=== PATIENT | female | born 1930 | race African-American/Black ===

== ENCOUNTER 2017-02-11 16:47 | Inpatient (IN) | payer MEDICARE, MEDICAID ==
[~2017-02-11] VITALS: Ht 154.9 cm; Wt 49.9 kg
[~2017-02-11 16:47] MED LIST: AMLO1CAP6 PO; BACTROBAN 2% TOP; CLON0.2T PO; FERR-43 PO; HYDR-4134 PO; LEVO25TA7 PO; LORA10TA7 PO; MELO-106 PO; METO100T5 PO; SANTYL U TOP; TRAM50TA3 PO; VITA1TAB22 PO; [UNRECOGNIZED DRUG - OTHER] TOP
[2017-02-11] MEDS ORDERED: TRAMADOL 50MG TABLET PO PRN ×2 (19:15→21:02)
[2017-02-11] MEDS ORDERED: IPRATROPIUM/ALBUTEROL 0.5-3(2.5)MG/3ML NEB INH PRN (19:15)
[2017-02-11] MEDS ORDERED: ONDANSETRON HCL 4MG/2ML VIAL IV PRN (19:15)
[2017-02-11] MEDS ORDERED: BISACODYL 5MG TABLET PO PRN (19:15)
[2017-02-11] MEDS ORDERED: ACETAMINOPHEN 325MG TABLET PO PRN (19:15)
[2017-02-11] MEDS ORDERED: LORAZEPAM 2MG/ML CPJ IV PRN (19:15)
[2017-02-11 20:00] VITALS: BP 142/57
[2017-02-11] MEDS ORDERED: NITROGLYCERIN 0.4MG TABLET SL SL PRN (20:15)
[2017-02-11] MEDS ORDERED: ZOLPIDEM TARTRATE 5MG TABLET PO PRN (20:15)
[2017-02-11 20:30] VITALS: BP 142/57
[2017-02-11 20:34] LABS: BASOPHILS % 0.8 % (0.0-2.0); EOSINOPHILS % 13.2 % (0.0-5.0); LYMPHOCYTES % 37.1 % (20.0-50.0); MEAN CORPUSCULAR VOLUME 102.4 fL (81.0-99.0); MEAN PLATELET VOLUME 6.7 fl (7.4-10.4); NEUTROPHILS % 34.9 % (40.0-76.0); PLATELET 358 x1000/uL (130-400); RED BLOOD CELL COUNT 1.93 mill/uL (4.2-5.4); RED CELL DISTRIBUTION WIDTH 13.4 % (11.6-14.6)
[2017-02-11 20:46] LABS: HEMATOCRIT. 19.7 % (36.0-48.0); HEMOGLOBIN. 6.5 g/dL (12.0-16.0)
[2017-02-11] MEDS ORDERED: DOCUSATE SODIUM 250MG CAPSULE PO NR (21:02)
[2017-02-11] MEDS ORDERED: DIATR MEGLU/DIATRIZOATE SOLN 30ML PO SCH (21:02)
[2017-02-11] MEDS ORDERED: DIPHENHYDRAMINE 50MG/ML VIAL IM PRN (21:15)
[2017-02-11 22:11] LABS: T4 FREE 0.93 ng/dL (0.76-1.46)
[2017-02-11 22:32] LABS: FOLIC ACID (FOLATE) SERUM 3.5 ng/mL (>5.38)
[2017-02-11] MEDS ORDERED: FOLIC ACID 1 MG in SODIUM CHLORIDE 0.9% 500 ML IV ONE (23:00)
[2017-02-11] MEDS ORDERED: LEVOFLOXACIN 500MG PREMIX 100 ML IV SCH (23:00)
[2017-02-11] MEDS: HYDRALAZINE HCL 25MG TABLET PO SCH (23:10)
[2017-02-11] MEDS: FOLIC ACID 1MG TABLET PO SCH (23:54)
[2017-02-12] VITALS (15 sets, daily range): BP systolic 127–175; BP diastolic 54–90
[2017-02-12] MEDS ORDERED: LEVOFLOXACIN 500MG PREMIX 100 ML IV SCH
[2017-02-12 04:14] LABS: CLARITY URINE CLEAR (CLEAR); COLOR URINE YELLOW (YELLOW); GLUCOSE URINE NEGATIVE (NEGATIVE); KETONES URINE NEGATIVE (NEGATIVE); LEUKOCYTE ESTERASE URINE 1+ (NEGATIVE); NITRITE URINE NEGATIVE (NEGATIVE); OCCULT BLOOD URINE NEGATIVE (NEGATIVE); PH URINE 6.5 (4.5-8.0); PROTEIN URINE TRACE (NEGATIVE); SPECIFIC GRAVITY URINE 1.018 (1.005-1.030); UROBILINOGEN URINE 0.2 E.U./dL (0.2-1.0)
[2017-02-12] MEDS: LEVOTHYROXINE SODIUM 25MCG TABLET PO SCH (06:20)
[2017-02-12] MEDS: HYDRALAZINE HCL 25MG TABLET PO SCH ×3 (06:21→17:42)
[2017-02-12 06:34] LABS: BASOPHILS % 0.8 % (0.0-2.0); EOSINOPHILS % 11.2 % (0.0-5.0); LYMPHOCYTES % 31.2 % (20.0-50.0); MEAN CORPUSCULAR HEMOGLOBIN 35.5 pg (28.0-32.0); MEAN CORPUSCULAR VOLUME 102.5 fL (81.0-99.0); MEAN PLATELET VOLUME 6.5 fl (7.4-10.4); MONOCYTES % 13.5 % (2.0-8.0); NEUTROPHILS % 43.3 % (40.0-76.0); PLATELET 356 x1000/uL (130-400); RED BLOOD CELL COUNT 1.96 mill/uL (4.2-5.4); RED CELL DISTRIBUTION WIDTH 13.2 % (11.6-14.6)
[2017-02-12 06:58] LABS: HEMATOCRIT. 20.1 % (36.0-48.0)
[2017-02-12] MEDS: MELOXICAM 7.5MG TABLET PO SCH (08:54)
[2017-02-12] MEDS: PANTOPRAZOLE SODIUM 40 MG/VIAL IV SCH (08:54)
[2017-02-12] MEDS: FOLIC ACID 1MG TABLET PO SCH (08:55)
[2017-02-12] MEDS: DOCUSATE SODIUM 250MG CAPSULE PO SCH (08:55)
[2017-02-12] MEDS: FERROUS SULFATE 325MG TABLET PO SCH (08:55)
[2017-02-12] MEDS: METOPROLOL TARTRATE 100MG TABLET PO SCH ×2 (08:55→21:30)
[2017-02-12] MEDS: LORATADINE 10MG TABLET PO SCH (08:55)
[2017-02-12] MEDS ORDERED: CLONIDINE 0.2MG TABLET PO SCH (09:00)
[2017-02-12 11:31] LABS: HEMATOCRIT 22.3 % (36.0-48.0); HEMOGLOBIN 7.5 g/dL (12.0-16.0); MEAN CORPUSCULAR HEMOGLOBIN 32.8 pg (28.0-32.0); MEAN CORPUSCULAR VOLUME 97.4 fL (81.0-99.0); PLATELET 316 x1000/uL (130-400); RED BLOOD CELL COUNT 2.29 mill/uL (4.2-5.4); RED CELL DISTRIBUTION WIDTH 16.6 % (11.6-14.6)
[2017-02-12] MEDS ORDERED: LORAZEPAM 0.5MG TABLET PO PRN (15:29)
[2017-02-12] MEDS: CLONIDINE 0.2MG TABLET PO SCH (21:31)
[2017-02-12] MEDS: IPRATROPIUM/ALBUTEROL 0.5-3(2.5)MG/3ML NEB HHN SCH (22:12)
[2017-02-12] MEDS: BUDESONIDE 0.5MG/2ML NEB HHN SCH (22:12)
[2017-02-12 23:17] LABS: HEMATOCRIT 28.1 % (36.0-48.0); HEMOGLOBIN 9.7 g/dL (12.0-16.0)
[2017-02-12 23:25] LABS: INR 1.1; PROTHROMBIN TIME 11.2 sec (9.4-11.6)
[2017-02-13] VITALS: BP 149/57
[2017-02-13] MEDS ORDERED: LEVOFLOXACIN 250MG PREMIX 50 ML IV SCH (01:00)
[2017-02-13] MEDS: IPRATROPIUM/ALBUTEROL 0.5-3(2.5)MG/3ML NEB HHN SCH ×2 (02:18→13:30)
[2017-02-13] MEDS: HYDRALAZINE HCL 25MG TABLET PO SCH ×2 (03:04→12:15)
[2017-02-13 03:55] VITALS: BP 163/70
[2017-02-13 05:58] LABS: HEMATOCRIT. 28.8 % (36.0-48.0); HEMOGLOBIN. 9.9 g/dL (12.0-16.0); MEAN CORPUSCULAR VOLUME 95.9 fL (81.0-99.0); MEAN PLATELET VOLUME 6.9 fl (7.4-10.4); PLATELET 302 x1000/uL (130-400); RED CELL DISTRIBUTION WIDTH 17.8 % (11.6-14.6)
[2017-02-13] MEDS: LEVOTHYROXINE SODIUM 25MCG TABLET PO SCH (06:32)
[2017-02-13 06:33] LABS: CARBON DIOXIDE 24 mEq/L (21-32); CHLORIDE 104 mEq/L (98-107)
[2017-02-13 08:00] VITALS: BP 153/67
[2017-02-13] MEDS: FERROUS SULFATE 325MG TABLET PO SCH (09:20)
[2017-02-13] MEDS: MELOXICAM 7.5MG TABLET PO SCH (09:20)
[2017-02-13] MEDS: FOLIC ACID 1MG TABLET PO SCH (09:20)
[2017-02-13] MEDS: DOCUSATE SODIUM 250MG CAPSULE PO SCH (09:20)
[2017-02-13] MEDS: CLONIDINE 0.2MG TABLET PO SCH (09:21)
[2017-02-13] MEDS: PANTOPRAZOLE SODIUM 40 MG/VIAL IV SCH (09:21)
[2017-02-13] MEDS: METOPROLOL TARTRATE 100MG TABLET PO SCH (09:21)
[2017-02-13] MEDS: LORATADINE 10MG TABLET PO SCH (09:21)
[2017-02-13 12:00] VITALS: BP 127/67
[2017-02-13 12:33] LABS: PLATELET ESTIMATE NORMAL
[2017-02-13] MEDS: BUDESONIDE 0.5MG/2ML NEB HHN SCH (13:30)
[2017-02-13 16:00] VITALS: BP 162/70
[2017-02-13 18:18] VITALS: BP 158/70
== END 2017-02-13 20:40 | disposition home or self-care (01) | DRG 377 ==
LOC: 6EST 16:47
PROVIDERS: ADMIT Internal Medicine Critical Care Medicine; ATTEND Internal Medicine
PROC: 30233N1 Transfusion of Nonautologous Red Blood Cells into Peripheral Vein, Percutaneous Approach (ICD-10-PCS; principal; 2017-02-12)
DX: K92.2 Gastrointestinal hemorrhage, unspecified (principal); N17.0 Acute kidney failure with tubular necrosis; I11.0 Hypertensive heart disease with heart failure; I50.30 Unspecified diastolic (congestive) heart failure; D53.9 Nutritional anemia, unspecified; E03.9 Hypothyroidism, unspecified; E11.9 Type 2 diabetes mellitus without complications; E53.8 Deficiency of other specified B group vitamins; E78.5 Hyperlipidemia, unspecified; R91.8 Other nonspecific abnormal finding of lung field; J44.9 Chronic obstructive pulmonary disease, unspecified; Z85.3 Personal history of malignant neoplasm of breast; Z87.01 Personal history of pneumonia (recurrent); Z88.0 Allergy status to penicillin; Z79.899 Other long term (current) drug therapy; Z87.440 Personal history of urinary (tract) infections; R50.9 Fever, unspecified
CPT/HCPCS: 36415; 71010; 74176; 80048; 80076; 81001; 82270; 82607; 82728; 82746; 83540; 83550; 83605; 84439; 84443; 85014; 85018; 85025; 85027; 85049; 85384; 85610; 86850; 86900; 86920; 87040; 87086; 93970; 94640; C1893; C9113; J1200; J1956; J7040; J7050; J7620; J7626; P9016; Q9963

== ENCOUNTER 2017-11-16 22:00 | Inpatient (IN) | payer MEDICARE, MEDICAID ==
[~2017-11-16] VITALS: Ht 149.9 cm; Wt 55.3 kg
[~2017-11-16 22:00] MED LIST changes: -AMLO1CAP6 PO; -BACTROBAN 2% TOP; -CLON0.2T PO; +DIAZ5TAB PO; -FERR-43 PO; +FURO20TA4 PO; +HYDR-3782 PO; -LEVO25TA7 PO; -LORA10TA7 PO; -MELO-106 PO; -METO100T5 PO; +METO25TA6 PO; -SANTYL U TOP; -TRAM50TA3 PO; -VITA1TAB22 PO; +[UNRECOGNIZED DRUG - CODE] PO; -[UNRECOGNIZED DRUG - OTHER] TOP
[2017-11-16 22:50] VITALS: BP 116/60
[2017-11-17] VITALS (7 sets, daily range): BP systolic 105–120; BP diastolic 27–64
[2017-11-17] MEDS ORDERED: IPRATROPIUM/ALBUTEROL 0.5-3(2.5)MG/3ML NEB HHN PRN (01:30)
[2017-11-17 07:36] LABS: BASOPHILS % 0.6 % (0.0-2.0); EOSINOPHILS % 0.1 % (0.0-5.0); HEMATOCRIT. 27.5 % (36.0-48.0); HEMOGLOBIN. 8.9 g/dL (12.0-16.0); LYMPHOCYTES % 9.2 % (20.0-50.0); MEAN CORPUSCULAR HEMOGLOBIN 29.4 pg (28.0-32.0); MEAN CORPUSCULAR VOLUME 90.6 fL (81.0-99.0); MEAN PLATELET VOLUME 6.8 fl (7.4-10.4); MONOCYTES % 8.6 % (2.0-8.0); NEUTROPHILS % 81.5 % (40.0-76.0); PLATELET 494 x1000/uL (130-400); RED BLOOD CELL COUNT 3.04 mill/uL (4.2-5.4); RED CELL DISTRIBUTION WIDTH 17.6 % (11.6-14.6)
[2017-11-17 07:57] LABS: CHLORIDE 105 mEq/L (98-107)
[2017-11-17] MEDS ORDERED: SODIUM POLYSTYRENE SULFONATE 15 G/60 ML BOT PO SCH (09:00)
[2017-11-17] MEDS: FUROSEMIDE 20MG TABLET PO SCH (11:32)
[2017-11-17] MEDS: ACETAMINOPHEN 650MG/20.3ML UDC PO PRN ×2 (11:32→17:25)
[2017-11-17] MEDS: DEXT 5%/0.45% NACL 1000ML 1,000 ML IV SCH ×2 (11:33→17:25)
[2017-11-17] MEDS: HYDRALAZINE HCL 25MG TABLET PO SCH ×2 (13:43→21:39)
[2017-11-17] MEDS ORDERED: LEVOFLOXACIN 500MG PREMIX 100 ML IV SCH (14:00)
[2017-11-17 16:25] LABS: CLARITY URINE CLEAR (CLEAR); COLOR URINE YELLOW (YELLOW); KETONES URINE 1+ (NEGATIVE); LEUKOCYTE ESTERASE URINE TRACE (NEGATIVE); NITRITE URINE NEGATIVE (NEGATIVE); OCCULT BLOOD URINE NEGATIVE (NEGATIVE); PROTEIN URINE TRACE (NEGATIVE); SPECIFIC GRAVITY URINE 1.016 (1.005-1.030); UROBILINOGEN URINE 0.2 E.U./dL (0.2-1.0)
[2017-11-17] MEDS: IPRATROPIUM/ALBUTEROL 0.5-3(2.5)MG/3ML NEB HHN SCH (21:37)
[2017-11-17] MEDS: DOXEPIN HCL 25MG CAPSULE PO SCH (21:39)
[2017-11-17] MEDS: METOPROLOL TARTRATE 25MG TABLET PO SCH (21:45)
[2017-11-18] VITALS: BP 114/67
[2017-11-18] MEDS: IPRATROPIUM/ALBUTEROL 0.5-3(2.5)MG/3ML NEB HHN SCH ×4 (01:20→20:55)
[2017-11-18] MEDS: ACETYLCYSTEINE 100MG/ML 10% VIAL 4ML INH SCH ×3 (01:21→20:55)
[2017-11-18] MEDS: DEXT 5%/0.45% NACL 1000ML 1,000 ML IV SCH ×2 (03:12→14:14)
[2017-11-18 04:00] VITALS: BP 138/70
[2017-11-18] MEDS: HYDRALAZINE HCL 25MG TABLET PO SCH ×2 (05:47→14:04)
[2017-11-18 08:00] VITALS: BP 120/61
[2017-11-18] MEDS: ACETAMINOPHEN 650MG/20.3ML UDC PO PRN ×2 (09:55→22:31)
[2017-11-18] MEDS: FUROSEMIDE 20MG TABLET PO SCH (09:56)
[2017-11-18] MEDS: METOPROLOL TARTRATE 25MG TABLET PO SCH ×2 (09:56→22:30)
[2017-11-18 09:57] LABS: HEMATOCRIT. 23.4 % (36.0-48.0); HEMOGLOBIN. 7.6 g/dL (12.0-16.0); MEAN CORPUSCULAR HEMOGLOBIN 29.3 pg (28.0-32.0); MEAN PLATELET VOLUME 7.1 fl (7.4-10.4); PLATELET 469 x1000/uL (130-400); RED CELL DISTRIBUTION WIDTH 17.6 % (11.6-14.6)
[2017-11-18 12:00] VITALS: BP 112/51
[2017-11-18] MEDS ORDERED: FUROSEMIDE 20MG/2ML VIAL IVP NR (12:15)
[2017-11-18] MEDS ORDERED: POTASSIUM CHLORIDE 20MEQ/PACKET PO NR (12:15)
[2017-11-18 16:00] VITALS: BP 100/51
[2017-11-18 16:18] LABS: PLATELET ESTIMATE INCREASED
[2017-11-18 20:00] VITALS: BP 115/62
[2017-11-18] MEDS: DOXEPIN HCL 25MG CAPSULE PO SCH (22:20)
[2017-11-19] MEDS: IPRATROPIUM/ALBUTEROL 0.5-3(2.5)MG/3ML NEB HHN SCH ×4 (01:08→21:12)
[2017-11-19 01:27] VITALS: BP 96/60
[2017-11-19 04:00] VITALS: BP 96/50
[2017-11-19] MEDS: HYDRALAZINE HCL 25MG TABLET PO SCH ×3 (06:00→22:09)
[2017-11-19 06:55] LABS: BASOPHILS % 0.1 % (0.0-2.0); EOSINOPHILS % 0.9 % (0.0-5.0); HEMATOCRIT. 23.9 % (36.0-48.0); HEMOGLOBIN. 7.7 g/dL (12.0-16.0); LYMPHOCYTES % 8.5 % (20.0-50.0); MEAN CORPUSCULAR HEMOGLOBIN 29.3 pg (28.0-32.0); MEAN CORPUSCULAR VOLUME 90.8 fL (81.0-99.0); MEAN PLATELET VOLUME 7.4 fl (7.4-10.4); MONOCYTES % 6.6 % (2.0-8.0); NEUTROPHILS % 83.9 % (40.0-76.0); PLATELET 439 x1000/uL (130-400); RED BLOOD CELL COUNT 2.63 mill/uL (4.2-5.4); RED CELL DISTRIBUTION WIDTH 17.7 % (11.6-14.6)
[2017-11-19 08:00] VITALS: BP 105/47
[2017-11-19 08:40] LABS: CHLORIDE 107 mEq/L (98-107)
[2017-11-19] MEDS: METOPROLOL TARTRATE 25MG TABLET PO SCH ×2 (08:42→22:12)
[2017-11-19] MEDS: FUROSEMIDE 20MG/2ML VIAL IVP SCH (08:43)
[2017-11-19] MEDS: ACETYLCYSTEINE 100MG/ML 10% VIAL 4ML INH SCH ×2 (09:01→21:12)
[2017-11-19] MEDS: LEVOFLOXACIN 750MG PREMIX 150 ML IV SCH (11:30)
[2017-11-19] MEDS: DEXT 5%/0.45% NACL 1000ML 1,000 ML IV SCH ×2 (11:43→21:50)
[2017-11-19 12:00] VITALS: BP 110/52
[2017-11-19 16:41] VITALS: BP 127/44
[2017-11-19] MEDS ORDERED: MORPHINE SULFATE 4 MG/ML CPJ (NOT FOR IM USE) IV PRN (17:45)
[2017-11-19] MEDS: MORPHINE SULFATE 4 MG/ML CPJ (NOT FOR IM USE) IV PRN (18:17)
[2017-11-19] MEDS: METRONIDAZOLE 500 MG PREMIX 100 ML IV SCH (19:00)
[2017-11-19 20:00] VITALS: BP 130/51
[2017-11-19] MEDS: DOXEPIN HCL 25MG CAPSULE PO SCH (23:06)
[2017-11-20] VITALS (23 sets, daily range): BP systolic 110–152; BP diastolic 60–85
[2017-11-20] MEDS: IPRATROPIUM/ALBUTEROL 0.5-3(2.5)MG/3ML NEB HHN SCH ×4 (01:37→20:13)
[2017-11-20] MEDS: METRONIDAZOLE 500 MG PREMIX 100 ML IV SCH ×3 (03:53→23:13)
[2017-11-20] MEDS: DEXT 5%/0.45% NACL 1000ML 1,000 ML IV SCH ×2 (08:05→16:40)
[2017-11-20] MEDS: FUROSEMIDE 20MG/2ML VIAL IVP SCH (08:53)
[2017-11-20] MEDS: ACETYLCYSTEINE 100MG/ML 10% VIAL 4ML INH SCH (08:54)
[2017-11-20] MEDS: METOPROLOL TARTRATE 25MG TABLET PO SCH ×2 (08:57→20:51)
[2017-11-20] MEDS: HYDRALAZINE HCL 25MG TABLET PO SCH ×2 (14:00→21:13)
[2017-11-20 14:03] LABS: BG BASE EXCESS -3.5 mmol/L (-2.0-2.0); BG CARBOXYHEMOGLOBIN 1.3 % (0.5-1.5); BG DEOXYHEMOGLOBIN 42.5 % (0.0-5.0); BG FRACTION INSPIRED OXYGEN 21; BG HCO3 ACT 23.9 mmol/L (22.0-26.0); BG METHEMOGLOBIN 0.1 % (0.0-1.5); BG OXYGEN SATURATION 56.9 % (92.0-98.5); BG OXYHEMOGLOBIN 56.1 % (94.0-97.0); BG PCO2 56.5 mmHg (35.0-45.0); BG PH 7.245 (7.350-7.450); BG PO2 31.2 mmHg (75.0-100.0); BG SAMPLE SITE RIGHT BRACHIAL; BG TOTAL HEMOGLOBIN 8.5 g/dL (12.0-18.0); BG VENT MODE ROOM AIR
[2017-11-20] MEDS ORDERED: ATROPINE SULFATE 1MG/10ML SYR ONE (14:16)
[2017-11-20] MEDS ORDERED: ETOMIDATE 2MG/ML 10ML VIAL IV ONE (14:16)
[2017-11-20] MEDS ORDERED: VECURONIUM BROMIDE 10 MG/VIAL IV ONE (14:16)
[2017-11-20] MEDS ORDERED: PROPOFOL 10MG/ML 100ML 100 ML IV PRN (15:15)
[2017-11-20] MEDS ORDERED: NOREPINEPHRINE BITARTRATE 1MG/ML 4ML IV ONE (16:13)
[2017-11-20 16:26] LABS: BG BASE EXCESS -3.4 mmol/L (-2.0-2.0); BG CARBOXYHEMOGLOBIN 0.3 % (0.5-1.5); BG DEOXYHEMOGLOBIN 0.5 % (0.0-5.0); BG FRACTION INSPIRED OXYGEN 100; BG HCO3 ACT 23.7 mmol/L (22.0-26.0); BG METHEMOGLOBIN 0.3 % (0.0-1.5); BG OXYGEN SATURATION 99.5 % (92.0-98.5); BG OXYHEMOGLOBIN 98.9 % (94.0-97.0); BG PCO2 54.5 mmHg (35.0-45.0); BG PH 7.256 (7.350-7.450); BG PO2 246.6 mmHg (75.0-100.0); BG SAMPLE SITE RIGHT RADIAL; BG TIDAL VOLUME(mL) 400 mL; BG TOTAL HEMOGLOBIN 7.6 g/dL (12.0-18.0); BG VENT MODE VENT - A/C; BG VENT RATE 12 set
[2017-11-20] MEDS ORDERED: PHENYLEPHRINE 20 MG in DEXT 5% WATER 248 ML IV PRN (17:00)
[2017-11-20] MEDS: NOREPINEPHRINE 8 MG in DEXT 5% WATER 242 ML IV PRN (17:40)
[2017-11-20 19:00] LABS: INR 1.1; PROTHROMBIN TIME 11.1 sec (9.1-11.1)
[2017-11-20] MEDS: DOXEPIN HCL 25MG CAPSULE PO SCH (20:52)
[2017-11-20] MEDS: PANTOPRAZOLE SODIUM 40 MG/VIAL IV SCH (21:12)
[2017-11-21] VITALS (96 sets, daily range): BP systolic 79–138; BP diastolic 42–84
[2017-11-21] MEDS: DEXT 5%/0.45% NACL 1000ML 1,000 ML IV SCH ×3 (01:46→21:02)
[2017-11-21] MEDS: IPRATROPIUM/ALBUTEROL 0.5-3(2.5)MG/3ML NEB HHN SCH ×4 (02:08→20:37)
[2017-11-21] MEDS: METRONIDAZOLE 500 MG PREMIX 100 ML IV SCH ×3 (03:45→18:51)
[2017-11-21] MEDS: HYDRALAZINE HCL 25MG TABLET PO SCH ×3 (05:25→21:02)
[2017-11-21 05:30] LABS: BASOPHILS % 0.1 % (0.0-2.0); EOSINOPHILS % 0.1 % (0.0-5.0); HEMATOCRIT. 23.4 % (36.0-48.0); HEMOGLOBIN. 7.6 g/dL (12.0-16.0); LYMPHOCYTES % 10.7 % (20.0-50.0); MEAN CORPUSCULAR HEMOGLOBIN 29.5 pg (28.0-32.0); MEAN CORPUSCULAR VOLUME 91.1 fL (81.0-99.0); MEAN PLATELET VOLUME 7.2 fl (7.4-10.4); MONOCYTES % 6.2 % (2.0-8.0); NEUTROPHILS % 82.9 % (40.0-76.0); PLATELET 401 x1000/uL (130-400); RED BLOOD CELL COUNT 2.57 mill/uL (4.2-5.4)
[2017-11-21 05:34] LABS: CHLORIDE 106 mEq/L (98-107)
[2017-11-21] MEDS ORDERED: POTASSIUM CHLORIDE INJ 40 MEQ in DEXT 5% WATER 250 ML IV SCH (07:30)
[2017-11-21 08:18] LABS: BG BASE EXCESS -4.7 mmol/L (-2.0-2.0); BG DEOXYHEMOGLOBIN 0.4 % (0.0-5.0); BG FRACTION INSPIRED OXYGEN 100; BG HCO3 ACT 20.1 mmol/L (22.0-26.0); BG METHEMOGLOBIN 0.7 % (0.0-1.5); BG OXYGEN SATURATION 99.6 % (92.0-98.5); BG OXYHEMOGLOBIN 98.9 % (94.0-97.0); BG PCO2 35.6 mmHg (35.0-45.0); BG PO2 341.1 mmHg (75.0-100.0); BG SAMPLE SITE RIGHT BRACHIAL; BG TIDAL VOLUME(mL) 400 mL; BG TOTAL HEMOGLOBIN 7.5 g/dL (12.0-18.0); BG VENT MODE VENT - A/C; BG VENT RATE 16 set
[2017-11-21] MEDS: METOPROLOL TARTRATE 25MG TABLET PO SCH ×2 (08:40→20:51)
[2017-11-21] MEDS: ACETYLCYSTEINE 100MG/ML 10% VIAL 4ML INH SCH (08:41)
[2017-11-21] MEDS: PANTOPRAZOLE SODIUM 40 MG/VIAL IV SCH ×2 (08:57→21:02)
[2017-11-21] MEDS: NOREPINEPHRINE 8 MG in DEXT 5% WATER 242 ML IV PRN (10:17)
[2017-11-21] MEDS: FUROSEMIDE 20MG/2ML VIAL IVP SCH (10:18)
[2017-11-21] MEDS: LEVOFLOXACIN 750MG PREMIX 150 ML IV SCH (16:12)
[2017-11-21] MEDS ORDERED: FUROSEMIDE 20MG/2ML VIAL IVP NR (18:30)
[2017-11-21] MEDS: DOXEPIN HCL 25MG CAPSULE PO SCH (20:51)
[2017-11-22] VITALS (98 sets, daily range): BP systolic 82–144; BP diastolic 46–78
[2017-11-22] MEDS: ACETYLCYSTEINE 100MG/ML 10% VIAL 4ML INH SCH ×3 (01:48→20:18)
[2017-11-22] MEDS: IPRATROPIUM/ALBUTEROL 0.5-3(2.5)MG/3ML NEB HHN SCH ×4 (01:49→20:18)
[2017-11-22] MEDS ORDERED: PROPOFOL 10MG/ML 100ML 100 ML IV PRN (03:00)
[2017-11-22] MEDS: METRONIDAZOLE 500 MG PREMIX 100 ML IV SCH ×3 (03:10→18:33)
[2017-11-22] MEDS: MORPHINE SULFATE 4 MG/ML CPJ (NOT FOR IM USE) IV PRN (04:31)
[2017-11-22 05:24] LABS: BASOPHILS % 0.1 % (0.0-2.0); EOSINOPHILS % 0.1 % (0.0-5.0); LYMPHOCYTES % 10.7 % (20.0-50.0); MEAN CORPUSCULAR HEMOGLOBIN 29.6 pg (28.0-32.0); MEAN CORPUSCULAR VOLUME 88.5 fL (81.0-99.0); MEAN PLATELET VOLUME 7.4 fl (7.4-10.4); NEUTROPHILS % 78.1 % (40.0-76.0); PLATELET 322 x1000/uL (130-400); RED BLOOD CELL COUNT 2.23 mill/uL (4.2-5.4); RED CELL DISTRIBUTION WIDTH 17.6 % (11.6-14.6)
[2017-11-22 05:28] LABS: CHLORIDE 106 mEq/L (98-107)
[2017-11-22 05:32] LABS: INR 1.2; PARTIAL THROMBOPLASTIN TIME 38.1 sec (23.4-31.0); PROTHROMBIN TIME 11.6 sec (9.1-11.1)
[2017-11-22] MEDS: HYDRALAZINE HCL 25MG TABLET PO SCH ×3 (05:34→21:11)
[2017-11-22 05:50] LABS: HEMOGLOBIN. 6.6 g/dL (12.0-16.0)
[2017-11-22 05:51] LABS: HEMATOCRIT. 19.7 % (36.0-48.0)
[2017-11-22 06:55] LABS: BG BASE EXCESS -5.8 mmol/L (-2.0-2.0); BG CARBOXYHEMOGLOBIN 0.3 % (0.5-1.5); BG DEOXYHEMOGLOBIN 1.2 % (0.0-5.0); BG METHEMOGLOBIN 0.3 % (0.0-1.5); BG OXYGEN SATURATION 98.8 % (92.0-98.5); BG OXYHEMOGLOBIN 98.2 % (94.0-97.0); BG PCO2 34.3 mmHg (35.0-45.0); BG PH 7.362 (7.350-7.450); BG PO2 139.8 mmHg (75.0-100.0); BG SAMPLE SITE RIGHT BRACHIAL; BG TIDAL VOLUME(mL) 400 mL; BG TOTAL HEMOGLOBIN 7.7 g/dL (12.0-18.0); BG VENT MODE VENT - A/C; BG VENT RATE 16 set
[2017-11-22] MEDS ORDERED: MAGNESIUM SULFATE 2 GM in DEXTROSE 5% WATER 50 ML IV SCH (07:30)
[2017-11-22] MEDS: METOPROLOL TARTRATE 25MG TABLET PO SCH ×2 (08:50→21:00)
[2017-11-22] MEDS: PANTOPRAZOLE SODIUM 40 MG/VIAL IV SCH ×2 (08:56→21:11)
[2017-11-22] MEDS: FUROSEMIDE 20MG/2ML VIAL IVP SCH (08:56)
[2017-11-22] MEDS: DEXT 5%/0.45% NACL 1000ML 1,000 ML IV SCH (08:57)
[2017-11-22] MEDS ORDERED: FUROSEMIDE 20MG/2ML VIAL IVP NR (12:45)
[2017-11-22] MEDS: PROPOFOL 10MG/ML 100ML 100 ML IV PRN ×2 (13:23→18:33)
[2017-11-22] MEDS ORDERED: SODIUM CHLORIDE 0.9% 10ML VIAL ONE (15:17)
[2017-11-22] MEDS ORDERED: FENTANYL CITRATE/PF 50MCG/ML 2ML VIAL ONE (16:24)
[2017-11-22] MEDS ORDERED: MIDAZOLAM HCL 5 MG/5 ML VIAL ONE (16:24)
[2017-11-22 16:38] LABS: HEMATOCRIT 27.6 % (36.0-48.0); HEMOGLOBIN 9.1 g/dL (12.0-16.0)
[2017-11-22] MEDS: NOREPINEPHRINE 8 MG in DEXT 5% WATER 242 ML IV PRN (19:11)
[2017-11-22] MEDS: DOXEPIN HCL 25MG CAPSULE PO SCH (21:11)
[2017-11-23] VITALS (94 sets, daily range): BP systolic 84–128; BP diastolic 50–72
[2017-11-23] MEDS: DEXT 5%/0.45% NACL 1000ML 1,000 ML IV SCH (01:38)
[2017-11-23] MEDS: IPRATROPIUM/ALBUTEROL 0.5-3(2.5)MG/3ML NEB HHN SCH ×4 (01:52→20:09)
[2017-11-23] MEDS: METRONIDAZOLE 500 MG PREMIX 100 ML IV SCH ×3 (03:27→19:33)
[2017-11-23] MEDS ORDERED: PROPOFOL 10MG/ML 100ML 100 ML IV PRN (04:00)
[2017-11-23] MEDS: HYDRALAZINE HCL 25MG TABLET PO SCH ×3 (05:15→22:00)
[2017-11-23 05:41] LABS: HEMATOCRIT. 26.3 % (36.0-48.0); HEMOGLOBIN. 8.7 g/dL (12.0-16.0); MEAN CORPUSCULAR HEMOGLOBIN 29.3 pg (28.0-32.0); MEAN CORPUSCULAR VOLUME 88.5 fL (81.0-99.0); MEAN PLATELET VOLUME 7.6 fl (7.4-10.4); PLATELET 263 x1000/uL (130-400); RED BLOOD CELL COUNT 2.97 mill/uL (4.2-5.4); RED CELL DISTRIBUTION WIDTH 16.5 % (11.6-14.6)
[2017-11-23 06:11] LABS: CHLORIDE 105 mEq/L (98-107)
[2017-11-23 06:16] LABS: PHOSPHORUS 1.3 mg/dL (2.5-4.9)
[2017-11-23 08:46] LABS: BG BASE EXCESS -6.2 mmol/L (-2.0-2.0); BG CARBOXYHEMOGLOBIN 0.4 % (0.5-1.5); BG DEOXYHEMOGLOBIN 1.1 % (0.0-5.0); BG FRACTION INSPIRED OXYGEN 40; BG HCO3 ACT 17.8 mmol/L (22.0-26.0); BG METHEMOGLOBIN 0.4 % (0.0-1.5); BG OXYGEN SATURATION 98.9 % (92.0-98.5); BG OXYHEMOGLOBIN 98.1 % (94.0-97.0); BG PCO2 29.4 mmHg (35.0-45.0); BG PH 7.399 (7.350-7.450); BG PO2 150.3 mmHg (75.0-100.0); BG SAMPLE SITE RIGHT BRACHIAL; BG TIDAL VOLUME(mL) 400 mL; BG TOTAL HEMOGLOBIN 8.3 g/dL (12.0-18.0); BG VENT MODE VENT - A/C; BG VENT RATE 16 set
[2017-11-23] MEDS: METOPROLOL TARTRATE 25MG TABLET PO SCH ×2 (09:00→20:20)
[2017-11-23 09:12] LABS: NUCLEATED RED BLOOD CELLS 1 /100 WBC; PLATELET ESTIMATE NORMAL
[2017-11-23] MEDS: PANTOPRAZOLE SODIUM 40 MG/VIAL IV SCH ×2 (09:43→20:20)
[2017-11-23] MEDS ORDERED: MAGNESIUM SULFATE 2 GM in DEXTROSE 5% WATER 50 ML IV NR (10:30)
[2017-11-23] MEDS ORDERED: POTASSIUM PHOS,M-BASIC-D-BASIC 30 MMOL in DEXT 5% WATER 500 ML IV NR (11:00)
[2017-11-23] MEDS: LEVOFLOXACIN 750MG PREMIX 150 ML IV SCH (12:12)
[2017-11-23] MEDS: FUROSEMIDE 20MG/2ML VIAL IVP SCH (13:13)
[2017-11-23] MEDS: PROPOFOL 10MG/ML 100ML 100 ML IV PRN (19:39)
[2017-11-23] MEDS: DOXEPIN HCL 25MG CAPSULE PO SCH (20:20)
[2017-11-23] MEDS: NOREPINEPHRINE 8 MG in DEXT 5% WATER 242 ML IV PRN (23:51)
[2017-11-24] VITALS (106 sets, daily range): BP systolic 86–139; BP diastolic 46–79
[2017-11-24] MEDS: IPRATROPIUM/ALBUTEROL 0.5-3(2.5)MG/3ML NEB HHN SCH ×4 (01:46→21:04)
[2017-11-24] MEDS: PROPOFOL 10MG/ML 100ML 100 ML IV PRN ×3 (02:58→23:08)
[2017-11-24] MEDS: METRONIDAZOLE 500 MG PREMIX 100 ML IV SCH ×3 (02:59→20:52)
[2017-11-24 05:30] LABS: HEMATOCRIT. 22.9 % (36.0-48.0); HEMOGLOBIN. 7.8 g/dL (12.0-16.0); MEAN CORPUSCULAR HEMOGLOBIN 29.5 pg (28.0-32.0); MEAN CORPUSCULAR VOLUME 86.9 fL (81.0-99.0); MEAN PLATELET VOLUME 7.6 fl (7.4-10.4); PLATELET 234 x1000/uL (130-400); RED BLOOD CELL COUNT 2.64 mill/uL (4.2-5.4); RED CELL DISTRIBUTION WIDTH 16.6 % (11.6-14.6)
[2017-11-24 05:38] LABS: CHLORIDE 105 mEq/L (98-107)
[2017-11-24 05:44] LABS: PHOSPHORUS 2.7 mg/dL (2.5-4.9)
[2017-11-24] MEDS: HYDRALAZINE HCL 25MG TABLET PO SCH ×3 (07:32→21:34)
[2017-11-24 07:35] LABS: BG BASE EXCESS -6.7 mmol/L (-2.0-2.0); BG CARBOXYHEMOGLOBIN 0.3 % (0.5-1.5); BG DEOXYHEMOGLOBIN 2.6 % (0.0-5.0); BG FRACTION INSPIRED OXYGEN 30; BG HCO3 ACT 17.6 mmol/L (22.0-26.0); BG METHEMOGLOBIN 0.5 % (0.0-1.5); BG OXYGEN SATURATION 97.4 % (92.0-98.5); BG OXYHEMOGLOBIN 96.6 % (94.0-97.0); BG PCO2 30.2 mmHg (35.0-45.0); BG PH 7.383 (7.350-7.450); BG PO2 96.4 mmHg (75.0-100.0); BG SAMPLE SITE RIGHT BRACHIAL; BG TIDAL VOLUME(mL) 400 mL; BG TOTAL HEMOGLOBIN 7.8 g/dL (12.0-18.0); BG VENT MODE VENT - A/C; BG VENT RATE 14 set
[2017-11-24] MEDS: METOPROLOL TARTRATE 25MG TABLET PO SCH ×2 (08:25→21:00)
[2017-11-24] MEDS: PANTOPRAZOLE SODIUM 40 MG/VIAL IV SCH ×2 (08:29→21:29)
[2017-11-24] MEDS: FUROSEMIDE 20MG/2ML VIAL IVP SCH (08:29)
[2017-11-24 09:52] LABS: PLATELET ESTIMATE NORMAL
[2017-11-24] MEDS: MIDODRINE HCL 5MG TABLET PO SCH ×2 (13:26→21:30)
[2017-11-24] MEDS: METOCLOPRAMIDE HCL 10MG/2ML VIAL IV SCH ×2 (13:26→17:07)
[2017-11-24] MEDS: DOXEPIN HCL 25MG CAPSULE PO SCH (21:30)
[2017-11-25] VITALS (75 sets, daily range): BP systolic 82–135; BP diastolic 49–68
[2017-11-25] MEDS: METOCLOPRAMIDE HCL 10MG/2ML VIAL IV SCH ×5 (00:15→23:51)
[2017-11-25] MEDS: IPRATROPIUM/ALBUTEROL 0.5-3(2.5)MG/3ML NEB HHN SCH ×4 (01:29→20:44)
[2017-11-25] MEDS: METRONIDAZOLE 500 MG PREMIX 100 ML IV SCH ×3 (03:58→18:50)
[2017-11-25 06:00] LABS: HEMATOCRIT. 31.9 % (36.0-48.0); HEMOGLOBIN. 10.7 g/dL (12.0-16.0); MEAN CORPUSCULAR HEMOGLOBIN 29.6 pg (28.0-32.0); MEAN CORPUSCULAR VOLUME 88.2 fL (81.0-99.0); MEAN PLATELET VOLUME 7.9 fl (7.4-10.4); PLATELET 206 x1000/uL (130-400); RED BLOOD CELL COUNT 3.61 mill/uL (4.2-5.4); RED CELL DISTRIBUTION WIDTH 15.6 % (11.6-14.6)
[2017-11-25] MEDS: HYDRALAZINE HCL 25MG TABLET PO SCH ×3 (06:00→22:00)
[2017-11-25 06:01] LABS: INR 1.2; PROTHROMBIN TIME 12.4 sec (9.1-11.1)
[2017-11-25 06:12] LABS: CHLORIDE 105 mEq/L (98-107)
[2017-11-25] MEDS: MIDODRINE HCL 5MG TABLET PO SCH ×3 (06:46→21:52)
[2017-11-25 08:34] LABS: BG BASE EXCESS -6.6 mmol/L (-2.0-2.0); BG CARBOXYHEMOGLOBIN 0.6 % (0.5-1.5); BG DEOXYHEMOGLOBIN 2.5 % (0.0-5.0); BG FRACTION INSPIRED OXYGEN 30; BG HCO3 ACT 17.6 mmol/L (22.0-26.0); BG METHEMOGLOBIN 0.3 % (0.0-1.5); BG OXYGEN SATURATION 97.5 % (92.0-98.5); BG OXYHEMOGLOBIN 96.6 % (94.0-97.0); BG PH 7.373 (7.350-7.450); BG PO2 99.1 mmHg (75.0-100.0); BG SAMPLE SITE RIGHT RADIAL; BG TIDAL VOLUME(mL) 400 mL; BG TOTAL HEMOGLOBIN 11.1 g/dL (12.0-18.0); BG VENT MODE VENT - A/C; BG VENT RATE 14 set
[2017-11-25] MEDS: METOPROLOL TARTRATE 25MG TABLET PO SCH ×2 (09:00→21:00)
[2017-11-25] MEDS: FUROSEMIDE 20MG/2ML VIAL IVP SCH (09:18)
[2017-11-25] MEDS: PANTOPRAZOLE SODIUM 40 MG/VIAL IV SCH ×2 (09:18→21:52)
[2017-11-25 09:32] LABS: PLATELET ESTIMATE NORMAL
[2017-11-25] MEDS: PROPOFOL 10MG/ML 100ML 100 ML IV PRN (10:57)
[2017-11-25] MEDS ORDERED: PROPOFOL 10MG/ML 100ML 100 ML IV PRN (11:30)
[2017-11-25] MEDS ORDERED: SODIUM PHOS,M-BASIC-D-BASIC 20 MM in DEXT 5% WATER 243.3333 ML IV NR (12:00)
[2017-11-25] MEDS: CEFEPIME 1,000 MG in DEXTROSE 5% WATER 50 ML IV SCH (14:24)
[2017-11-25] MEDS: DOXEPIN HCL 25MG CAPSULE PO SCH (21:52)
[2017-11-26] VITALS (67 sets, daily range): BP systolic 85–145; BP diastolic 31–81
[2017-11-26] MEDS: IPRATROPIUM/ALBUTEROL 0.5-3(2.5)MG/3ML NEB HHN SCH ×5 (02:00→20:54)
[2017-11-26] MEDS: METRONIDAZOLE 500 MG PREMIX 100 ML IV SCH ×3 (03:35→18:58)
[2017-11-26] MEDS: METOCLOPRAMIDE HCL 10MG/2ML VIAL IV SCH ×3 (05:54→17:22)
[2017-11-26] MEDS: MIDODRINE HCL 5MG TABLET PO SCH ×3 (05:54→22:04)
[2017-11-26] MEDS: HYDRALAZINE HCL 25MG TABLET PO SCH ×3 (06:00→22:00)
[2017-11-26 06:22] LABS: HEMATOCRIT. 33.7 % (36.0-48.0); HEMOGLOBIN. 11.3 g/dL (12.0-16.0); MEAN CORPUSCULAR HEMOGLOBIN 29.5 pg (28.0-32.0); MEAN CORPUSCULAR VOLUME 88.2 fL (81.0-99.0); MEAN PLATELET VOLUME 8.1 fl (7.4-10.4); PLATELET 186 x1000/uL (130-400); RED BLOOD CELL COUNT 3.82 mill/uL (4.2-5.4); RED CELL DISTRIBUTION WIDTH 15.8 % (11.6-14.6)
[2017-11-26 06:39] LABS: CHLORIDE 107 mEq/L (98-107)
[2017-11-26 06:57] LABS: PHOSPHORUS 3.1 mg/dL (2.5-4.9)
[2017-11-26 07:42] LABS: PLATELET ESTIMATE NORMAL
[2017-11-26] MEDS: FUROSEMIDE 20MG/2ML VIAL IVP SCH (08:33)
[2017-11-26] MEDS: PANTOPRAZOLE SODIUM 40 MG/VIAL IV SCH ×2 (08:33→22:03)
[2017-11-26] MEDS: METOPROLOL TARTRATE 25MG TABLET PO SCH ×2 (08:34→22:04)
[2017-11-26 08:53] LABS: BG BASE EXCESS -6.2 mmol/L (-2.0-2.0); BG CARBOXYHEMOGLOBIN 0.6 % (0.5-1.5); BG DEOXYHEMOGLOBIN 3.3 % (0.0-5.0); BG FRACTION INSPIRED OXYGEN 30; BG HCO3 ACT 17.3 mmol/L (22.0-26.0); BG METHEMOGLOBIN 0.2 % (0.0-1.5); BG OXYGEN SATURATION 96.7 % (92.0-98.5); BG OXYHEMOGLOBIN 95.9 % (94.0-97.0); BG PCO2 28.2 mmHg (35.0-45.0); BG PH 7.405 (7.350-7.450); BG PO2 83.2 mmHg (75.0-100.0); BG SAMPLE SITE RIGHT RADIAL; BG TIDAL VOLUME(mL) 400 mL; BG TOTAL HEMOGLOBIN 11.9 g/dL (12.0-18.0); BG VENT MODE VENT - A/C; BG VENT RATE 14 set
[2017-11-26] MEDS ORDERED: PROPOFOL 10MG/ML 100ML 100 ML IV PRN (09:43)
[2017-11-26] MEDS ORDERED: MAGNESIUM SULFATE 2 GM in DEXTROSE 5% WATER 50 ML IV NR (11:00)
[2017-11-26] MEDS: CEFEPIME 1,000 MG in DEXTROSE 5% WATER 50 ML IV SCH (15:09)
[2017-11-26] MEDS ORDERED: LACTULOSE 20G/30ML UDC PO PRN (16:45)
[2017-11-26] MEDS: DOXEPIN HCL 25MG CAPSULE PO SCH (22:03)
[2017-11-27] VITALS (65 sets, daily range): BP systolic 90–172; BP diastolic 49–96
[2017-11-27] MEDS: METOCLOPRAMIDE HCL 10MG/2ML VIAL IV SCH ×4 (00:26→18:24)
[2017-11-27 05:24] LABS: HEMATOCRIT. 36.8 % (36.0-48.0); HEMOGLOBIN. 11.8 g/dL (12.0-16.0); MEAN CORPUSCULAR HEMOGLOBIN 29.6 pg (28.0-32.0); MEAN PLATELET VOLUME 8.2 fl (7.4-10.4); PLATELET 150 x1000/uL (130-400); RED BLOOD CELL COUNT 3.99 mill/uL (4.2-5.4); RED CELL DISTRIBUTION WIDTH 16.6 % (11.6-14.6)
[2017-11-27 05:55] LABS: CHLORIDE 108 mEq/L (98-107)
[2017-11-27] MEDS: HYDRALAZINE HCL 25MG TABLET PO SCH ×3 (06:00→22:00)
[2017-11-27] MEDS: MIDODRINE HCL 5MG TABLET PO SCH ×3 (06:19→20:15)
[2017-11-27] MEDS: IPRATROPIUM/ALBUTEROL 0.5-3(2.5)MG/3ML NEB HHN SCH ×2 (07:56→20:01)
[2017-11-27] MEDS: PANTOPRAZOLE SODIUM 40 MG/VIAL IV SCH ×2 (08:37→20:14)
[2017-11-27] MEDS: METOPROLOL TARTRATE 25MG TABLET PO SCH ×2 (08:37→20:15)
[2017-11-27] MEDS: FUROSEMIDE 20MG/2ML VIAL IVP SCH (08:37)
[2017-11-27 08:41] LABS: PLATELET ESTIMATE NORMAL
[2017-11-27 08:58] LABS: BG BASE EXCESS -3.1 mmol/L (-2.0-2.0); BG CARBOXYHEMOGLOBIN 0.2 % (0.5-1.5); BG DEOXYHEMOGLOBIN 2.1 % (0.0-5.0); BG FRACTION INSPIRED OXYGEN 30; BG HCO3 ACT 20.7 mmol/L (22.0-26.0); BG METHEMOGLOBIN 0.3 % (0.0-1.5); BG OXYGEN SATURATION 97.9 % (92.0-98.5); BG OXYHEMOGLOBIN 97.4 % (94.0-97.0); BG PCO2 32.8 mmHg (35.0-45.0); BG PH 7.418 (7.350-7.450); BG PO2 108.6 mmHg (75.0-100.0); BG SAMPLE SITE RIGHT RADIAL; BG TIDAL VOLUME(mL) 400 mL; BG TOTAL HEMOGLOBIN 11.6 g/dL (12.0-18.0); BG VENT MODE VENT - A/C; BG VENT RATE 14 set
[2017-11-27] MEDS: CEFEPIME 1,000 MG in DEXTROSE 5% WATER 50 ML IV SCH (13:21)
[2017-11-27] MEDS: DOXEPIN HCL 25MG CAPSULE PO SCH (20:15)
[2017-11-28] VITALS (24 sets, daily range): BP systolic 114–161; BP diastolic 64–97
[2017-11-28] MEDS: IPRATROPIUM/ALBUTEROL 0.5-3(2.5)MG/3ML NEB HHN SCH ×5 (00:11→20:19)
[2017-11-28] MEDS: METOCLOPRAMIDE HCL 10MG/2ML VIAL IV SCH ×4 (02:30→17:36)
[2017-11-28 04:37] LABS: HEMATOCRIT. 31.7 % (36.0-48.0); HEMOGLOBIN. 10.5 g/dL (12.0-16.0); MEAN CORPUSCULAR HEMOGLOBIN 29.1 pg (28.0-32.0); MEAN CORPUSCULAR VOLUME 87.5 fL (81.0-99.0); PLATELET 150 x1000/uL (130-400); RED BLOOD CELL COUNT 3.62 mill/uL (4.2-5.4); RED CELL DISTRIBUTION WIDTH 15.6 % (11.6-14.6)
[2017-11-28 04:40] LABS: CHLORIDE 107 mEq/L (98-107)
[2017-11-28] MEDS: MIDODRINE HCL 5MG TABLET PO SCH ×3 (05:36→21:37)
[2017-11-28] MEDS: HYDRALAZINE HCL 25MG TABLET PO SCH (05:37)
[2017-11-28] MEDS: FUROSEMIDE 20MG/2ML VIAL IVP SCH (08:43)
[2017-11-28] MEDS: PANTOPRAZOLE SODIUM 40 MG/VIAL IV SCH ×2 (08:43→20:31)
[2017-11-28] MEDS: METOPROLOL TARTRATE 25MG TABLET PO SCH (08:45)
[2017-11-28 08:59] LABS: BG BASE EXCESS -1.6 mmol/L (-2.0-2.0); BG CARBOXYHEMOGLOBIN 0.7 % (0.5-1.5); BG DEOXYHEMOGLOBIN 1.5 % (0.0-5.0); BG FRACTION INSPIRED OXYGEN 30; BG METHEMOGLOBIN 0.3 % (0.0-1.5); BG OXYGEN SATURATION 98.5 % (92.0-98.5); BG OXYHEMOGLOBIN 97.5 % (94.0-97.0); BG PCO2 33.6 mmHg (35.0-45.0); BG PH 7.434 (7.350-7.450); BG PO2 112.6 mmHg (75.0-100.0); BG SAMPLE SITE RIGHT BRACHIAL; BG TIDAL VOLUME(mL) 400 mL; BG TOTAL HEMOGLOBIN 11.7 g/dL (12.0-18.0); BG VENT MODE VENT - A/C; BG VENT RATE 14 set
[2017-11-28 11:24] LABS: PLATELET ESTIMATE NORMAL
[2017-11-28] MEDS: CEFEPIME 1,000 MG in DEXTROSE 5% WATER 50 ML IV SCH (12:34)
[2017-11-28] MEDS ORDERED: MAGNESIUM SULFATE 2 GM in DEXTROSE 5% WATER 50 ML IV NR (15:00)
[2017-11-28] MEDS: DOXEPIN HCL 25MG CAPSULE PO SCH (20:31)
[2017-11-29] VITALS (24 sets, daily range): BP systolic 119–154; BP diastolic 62–83
[2017-11-29] MEDS: METOCLOPRAMIDE HCL 10MG/2ML VIAL IV SCH ×4 (00:22→17:53)
[2017-11-29] MEDS: IPRATROPIUM/ALBUTEROL 0.5-3(2.5)MG/3ML NEB HHN SCH ×4 (01:57→20:17)
[2017-11-29] MEDS: MIDODRINE HCL 5MG TABLET PO SCH ×3 (06:44→20:52)
[2017-11-29 08:52] LABS: BG BASE EXCESS -2.1 mmol/L (-2.0-2.0); BG CARBOXYHEMOGLOBIN 0.8 % (0.5-1.5); BG FRACTION INSPIRED OXYGEN 30; BG HCO3 ACT 21.2 mmol/L (22.0-26.0); BG METHEMOGLOBIN 0.4 % (0.0-1.5); BG OXYHEMOGLOBIN 96.8 % (94.0-97.0); BG PCO2 31.5 mmHg (35.0-45.0); BG PH 7.446 (7.350-7.450); BG PO2 104.5 mmHg (75.0-100.0); BG SAMPLE SITE RIGHT RADIAL; BG TIDAL VOLUME(mL) 400 mL; BG TOTAL HEMOGLOBIN 10.9 g/dL (12.0-18.0); BG VENT MODE VENT - A/C; BG VENT RATE 14 set
[2017-11-29] MEDS: FUROSEMIDE 20MG/2ML VIAL IVP SCH (09:39)
[2017-11-29] MEDS: PANTOPRAZOLE SODIUM 40 MG/VIAL IV SCH ×2 (09:39→20:52)
[2017-11-29 12:07] LABS: HEMATOCRIT. 31.6 % (36.0-48.0); HEMOGLOBIN. 10.3 g/dL (12.0-16.0); MEAN CORPUSCULAR HEMOGLOBIN 29.2 pg (28.0-32.0); MEAN CORPUSCULAR VOLUME 89.5 fL (81.0-99.0); MEAN PLATELET VOLUME 8.4 fl (7.4-10.4); PLATELET 167 x1000/uL (130-400); RED BLOOD CELL COUNT 3.53 mill/uL (4.2-5.4); RED CELL DISTRIBUTION WIDTH 15.6 % (11.6-14.6)
[2017-11-29] MEDS: CEFEPIME 1,000 MG in DEXTROSE 5% WATER 50 ML IV SCH (12:32)
[2017-11-29 12:57] LABS: CHLORIDE 107 mEq/L (98-107)
[2017-11-29 13:15] LABS: PLATELET ESTIMATE NORMAL
[2017-11-29] MEDS: ACETAMINOPHEN WITH CODEINE 300/30MG TABLET PO PRN (18:04)
[2017-11-29] MEDS: DOXEPIN HCL 25MG CAPSULE PO SCH (20:52)
[2017-11-30] VITALS (24 sets, daily range): BP systolic 113–152; BP diastolic 63–84
[2017-11-30] MEDS: METOCLOPRAMIDE HCL 10MG/2ML VIAL IV SCH ×4 (00:09→17:57)
[2017-11-30] MEDS: ACETAMINOPHEN 650MG/20.3ML UDC PO PRN ×2 (01:21→20:41)
[2017-11-30] MEDS: IPRATROPIUM/ALBUTEROL 0.5-3(2.5)MG/3ML NEB HHN SCH ×4 (01:59→20:12)
[2017-11-30] MEDS ORDERED: SODIUM CHLORIDE 0.45% 250 ML IV ONE (02:30)
[2017-11-30] MEDS: DEXT 5%/0.45% NACL 500ML 1,000 ML IV SCH ×2 (02:53→03:02)
[2017-11-30] MEDS ORDERED: DEXT 5%/0.45% NACL 1000ML 1,000 ML IV ONE (03:08)
[2017-11-30] MEDS ORDERED: DILTIAZEM HCL 125 MG in DEXT 5% WATER 100 ML IV PRN (03:30)
[2017-11-30] MEDS: MIDODRINE HCL 5MG TABLET PO SCH ×3 (05:45→22:00)
[2017-11-30 06:58] LABS: HEMATOCRIT 29.7 % (36.0-48.0); HEMOGLOBIN 9.6 g/dL (12.0-16.0); MEAN CORPUSCULAR HEMOGLOBIN 28.9 pg (28.0-32.0); MEAN CORPUSCULAR VOLUME 89.1 fL (81.0-99.0); PLATELET 183 x1000/uL (130-400); RED BLOOD CELL COUNT 3.33 mill/uL (4.2-5.4); RED CELL DISTRIBUTION WIDTH 15.9 % (11.6-14.6)
[2017-11-30 07:25] LABS: CHLORIDE 107 mEq/L (98-107)
[2017-11-30] MEDS ORDERED: SODIUM POLYSTYRENE SULFONATE 15 G/60 ML BOT GT NR (08:30)
[2017-11-30 08:58] LABS: BG BASE EXCESS -1.3 mmol/L (-2.0-2.0); BG CARBOXYHEMOGLOBIN 0.4 % (0.5-1.5); BG FRACTION INSPIRED OXYGEN 30; BG HCO3 ACT 23.1 mmol/L (22.0-26.0); BG METHEMOGLOBIN 0.2 % (0.0-1.5); BG OXYHEMOGLOBIN 97.4 % (94.0-97.0); BG PCO2 37.6 mmHg (35.0-45.0); BG PH 7.406 (7.350-7.450); BG PO2 105.5 mmHg (75.0-100.0); BG SAMPLE SITE RIGHT RADIAL; BG TIDAL VOLUME(mL) 400 mL; BG TOTAL HEMOGLOBIN 10.5 g/dL (12.0-18.0); BG VENT MODE VENT - A/C; BG VENT RATE 14 set
[2017-11-30] MEDS: FUROSEMIDE 20MG/2ML VIAL IVP SCH (09:03)
[2017-11-30] MEDS: PANTOPRAZOLE SODIUM 40 MG/VIAL IV SCH ×2 (09:03→20:41)
[2017-11-30] MEDS ORDERED: SODIUM CHLORIDE 0.9% 250 ML IV NR (10:15)
[2017-11-30] MEDS: DEXT 5%/0.45% NACL 1000ML 1,000 ML IV SCH (10:26)
[2017-11-30] MEDS: CEFEPIME 1,000 MG in DEXTROSE 5% WATER 50 ML IV SCH (12:58)
[2017-11-30] MEDS: DOXEPIN HCL 25MG CAPSULE PO SCH (20:41)
[2017-12-01] VITALS (26 sets, daily range): BP systolic 111–173; BP diastolic 61–108
[2017-12-01] MEDS: METOCLOPRAMIDE HCL 10MG/2ML VIAL IV SCH ×4 (00:13→17:29)
[2017-12-01] MEDS: IPRATROPIUM/ALBUTEROL 0.5-3(2.5)MG/3ML NEB HHN SCH ×4 (02:18→19:54)
[2017-12-01] MEDS: DEXT 5%/0.45% NACL 1000ML 1,000 ML IV SCH ×2 (02:28→17:28)
[2017-12-01] MEDS: ACETAMINOPHEN WITH CODEINE 300/30MG TABLET PO PRN ×3 (03:24→20:37)
[2017-12-01] MEDS: MIDODRINE HCL 5MG TABLET PO SCH ×3 (06:00→22:00)
[2017-12-01 06:31] LABS: HEMATOCRIT. 28.5 % (36.0-48.0); HEMOGLOBIN. 9.3 g/dL (12.0-16.0); MEAN CORPUSCULAR HEMOGLOBIN 29.4 pg (28.0-32.0); MEAN CORPUSCULAR VOLUME 89.6 fL (81.0-99.0); MEAN PLATELET VOLUME 8.5 fl (7.4-10.4); PLATELET 208 x1000/uL (130-400); RED BLOOD CELL COUNT 3.17 mill/uL (4.2-5.4); RED CELL DISTRIBUTION WIDTH 15.9 % (11.6-14.6)
[2017-12-01 06:57] LABS: CHLORIDE 106 mEq/L (98-107)
[2017-12-01] MEDS: PANTOPRAZOLE SODIUM 40 MG/VIAL IV SCH ×2 (08:55→21:00)
[2017-12-01] MEDS: FUROSEMIDE 20MG/2ML VIAL IVP SCH (08:55)
[2017-12-01 10:20] LABS: PLATELET ESTIMATE NORMAL
[2017-12-01] MEDS ORDERED: MORPHINE SULFATE 4 MG/ML CPJ (NOT FOR IM USE) IV PRN (10:30)
[2017-12-01] MEDS ORDERED: LORAZEPAM 2MG/ML CPJ IM PRN (10:30)
[2017-12-01] MEDS: CEFEPIME 1,000 MG in DEXTROSE 5% WATER 50 ML IV SCH (15:02)
[2017-12-01] MEDS: LORAZEPAM 2MG/ML CPJ IV PRN (20:18)
[2017-12-01] MEDS: DOXEPIN HCL 25MG CAPSULE PO SCH (21:00)
[2017-12-01] MEDS: DILTIAZEM HCL 30MG TABLET PO SCH (21:24)
[2017-12-02] VITALS (18 sets, daily range): BP systolic 121–148; BP diastolic 56–80
[2017-12-02] MEDS: METOCLOPRAMIDE HCL 10MG/2ML VIAL IV SCH ×2 (00:55→06:13)
[2017-12-02] MEDS: IPRATROPIUM/ALBUTEROL 0.5-3(2.5)MG/3ML NEB HHN SCH ×2 (02:10→08:17)
[2017-12-02] MEDS: MORPHINE SULFATE 4 MG/ML CPJ (NOT FOR IM USE) IV PRN ×3 (03:33→13:31)
[2017-12-02] MEDS: MIDODRINE HCL 5MG TABLET PO SCH (06:00)
[2017-12-02] MEDS: DILTIAZEM HCL 30MG TABLET PO SCH ×3 (06:13→21:34)
[2017-12-02] MEDS: DEXT 5%/0.45% NACL 1000ML 1,000 ML IV SCH (08:28)
[2017-12-02] MEDS: FUROSEMIDE 20MG/2ML VIAL IVP SCH (08:28)
[2017-12-02] MEDS: PANTOPRAZOLE SODIUM 40 MG/VIAL IV SCH (08:28)
[2017-12-02] MEDS ORDERED: ATROPINE SULFATE 1% OPHTH 2ML SL PRN (10:15)
[2017-12-02] MEDS: LORAZEPAM 2MG/ML CPJ IV PRN (10:42)
[2017-12-02] MEDS: DOXEPIN HCL 25MG CAPSULE PO SCH (21:33)
[2017-12-03] VITALS: BP 155/80
[2017-12-03 02:46] VITALS: BP 114/52
[2017-12-03 04:00] VITALS: BP 92/45
== END 2017-12-03 05:35 | disposition expired | DRG 870 ==
LOC: 6EST 22:00 → 6WST 11-19 13:43 → CVICU 11-20 15:05 → 8WST 12-02 15:55
PROVIDERS: ADMIT Internal Medicine Critical Care Medicine; ATTEND Internal Medicine Critical Care Medicine
PROC: 5A1955Z Respiratory Ventilation, Greater than 96 Consecutive Hours (ICD-10-PCS; 2017-11-20)
PROC: 0BH17EZ Insertion of Endotracheal Airway into Trachea, Via Natural or Artificial Opening (ICD-10-PCS; 2017-11-20)
PROC: 06HY33Z Insertion of Infusion Device into Lower Vein, Percutaneous Approach (ICD-10-PCS; 2017-11-20)
PROC: 30233N1 Transfusion of Nonautologous Red Blood Cells into Peripheral Vein, Percutaneous Approach (ICD-10-PCS; 2017-11-22)
PROC: 0DH63UZ Insertion of Feeding Device into Stomach, Percutaneous Approach (ICD-10-PCS; principal; 2017-11-22 16:00)
DX: A41.9 Sepsis, unspecified organism (principal); E43 Unspecified severe protein-calorie malnutrition; J96.01 Acute respiratory failure with hypoxia; J69.0 Pneumonitis due to inhalation of food and vomit; I50.32 Chronic diastolic (congestive) heart failure; I82.503 Chronic embolism and thrombosis of unspecified deep veins of lower extremity, bilateral; Z99.11 Dependence on respirator [ventilator] status; Z66 Do not resuscitate; E87.5 Hyperkalemia; I95.9 Hypotension, unspecified; E83.42 Hypomagnesemia; L30.9 Dermatitis, unspecified; I11.0 Hypertensive heart disease with heart failure; D63.8 Anemia in other chronic diseases classified elsewhere; E83.39 Other disorders of phosphorus metabolism; I70.245 Atherosclerosis of native arteries of left leg with ulceration of other part of foot; E66.9 Obesity, unspecified; E87.6 Hypokalemia; R62.7 Adult failure to thrive; E86.0 Dehydration; E78.5 Hyperlipidemia, unspecified; C50.912 Malignant neoplasm of unspecified site of left female breast; G89.3 Neoplasm related pain (acute) (chronic); J44.9 Chronic obstructive pulmonary disease, unspecified; L97.529 Non-pressure chronic ulcer of other part of left foot with unspecified severity; R13.10 Dysphagia, unspecified; Z87.440 Personal history of urinary (tract) infections; Z68.24 Body mass index [BMI] 24.0-24.9, adult; Z88.0 Allergy status to penicillin; Z87.19 Personal history of other diseases of the digestive system
CPT/HCPCS: 31500; 36415; 36600; 71045; 80048; 80053; 81003; 82375; 82805; 83735; 84100; 84134; 84478; 85014; 85018; 85025; 85027; 85610; 85730; 86850; 86900; 86920; 87040; 87070; 87077; 87086; 87186; 92610; 93970; 94002; 94003; 94640; A4216; C1893; C9113; J0461; J0692; J1940; J1956; J2060; J2250; J2270; J2704; J2765; J3010; J3475; J3480; J3490; J7040; J7050; J7060; J7608; J7620; P9016; A4315